=== PATIENT | female | born 1955 | race Caucasian/White ===

== ENCOUNTER 2023-10-20 11:21 | Emergency (ER) | payer MEDICARE, SELFPAY ==
[2023-10-20 11:33] VITALS: BP 210/130; PULSE 80; TEMP 37.2; O2SAT 98; BMI 27.3
--- NOTE | 2023-10-20 11:47 | ECG_ITS ---
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
--- NOTE | 2023-10-20 11:55 | ED_ITS ---
HPI - Dizziness General Chief Complaint: Dizziness Stated Complaint: HIGH BLOOD PRESSURE READING Time Seen by Provider: 10/20/23 11:36 Source: patient Mode of arrival: walk-in Limitations: no limitations History of Present Illness HPI Narrative: The patient was getting evaluated by her psychiatrist for refill of her Cymbalta that she ran out of, the patient was found to have elevated blood pressure ,told to come to the ER, the patient mentioned that she have some dizziness sometimes although she does not have any dizziness at the moment she also denies any chest pain nausea vomiting or any other complaints. She mentioned that her blood pressure medication was changed in September because of overtreatment and dizziness and it was cut in half. The patient denies any other complaints at the moment and she would like to go home Related Data Home Medications ?Medication ?Instructions ?Recorded ?Confirmed aspirin 81 mg tablet,delayed 81 mg PO DAILY 10/20/23 10/20/23 release atorvastatin 40 mg tablet 40 mg PO DAILY 10/20/23 10/20/23 duloxetine 30 mg capsule,delayed 30 mg PO DAILY 10/20/23 10/20/23 release duloxetine 60 mg capsule,delayed 60 mg PO .hs 10/20/23 10/20/23 release trazodone 150 mg tablet 150 mg PO .hs 10/20/23 10/20/23 Allergies Allergy/AdvReac Type Severity Reaction Status Date / Time Penicillins Allergy Intermediate Rash Verified 10/20/23 11:29 codeine Allergy Mild Abdominal Verified 10/20/23 11:29 Pain sulfamethoxazole Allergy Mild Verified 10/20/23 11:29 [From Bactrim] trimethoprim [From Bactrim] Allergy Mild Verified 10/20/23 11:29 Review of Systems ROS Status of ROS 10 or more systems reviewed and unremark able except as noted in history and below Exam Narrative Exam Narrative: Nurses notes and vital signs reviewed and patient is not hypoxic. General: Well-appearing and in no apparent distress. Skin: Warm, dry, no pallor noted. No rash. Head: Normocephalic, atraumatic. Neck: Supple, non-tender. Eye: Pupils are equal, round and EOMI. No scleral icterus. Ears, Nose, Mouth, and Throat: TM are clear, no nasal mucosal hypertrophy. Oral mucosa is moist, no posterior oropharynx erythema, uvula is mid-line Cardiovascular: Regular Rate and Rhythm without murmur, gallop or rub. Respiratory: No accessory muscle use or respiratory distress. Lungs are clear to auscultation, no wheezing, rales or rhonchi Chest Wall: no tenderness Back: No midline thoracic or lumbar vertebral tenderness. No CVA tenderness Musculoskeletal: normal ROM, no calf or popliteal tenderness, no lower extremity edema/swelling GI: Abdomen is soft, non-distended. Normal bowel sounds. No masses appreciated. No tenderness to palpation. No rebound, guarding, or rigidity noted. Neurological: A&O x4. No cranial nerve dysfunction observed. No truncal ataxia. Moves all extremities. Sensation intact. Psychiatric: Cooperative and interactive. Normal mood and affect. Constitutional Vital Signs, click to edit/add: Last Vital Signs Temp 98.9 F 10/20/23 11:33 Pulse 73 10/20/23 11:57 Resp 18 10/20/23 11:57 BP 161/96 H 10/20/23 11:57 Pulse Ox 92 L 10/20/23 11:57 O2 Del Method Room Air 10/20/23 11:33 Course Vital Signs Vital signs: Vital Signs Temperature 98.9 F 10/20/23 11:33 Pulse Rate 80 10/20/23 11:33 Respiratory Rate 15 10/20/23 11:33 Blood Pressure 210/130 H 10/20/23 11:33 Pulse Oximetry 98 10/20/23 11:33 Oxygen Delivery Method Room Air 10/20/23 11:33 Temperature 98.9 F 10/20/23 11:33 Pulse Rate 73 10/20/23 11:57 Respiratory Rate 18 10/20/23 11:57 Blood Pressure 161/96 H 10/20/23 11:57 Pulse Oximetry 92 L 10/20/23 11:57 Oxygen Delivery Method Room Air 10/20/23 11:33 MDM - Dizziness MDM Narrative Medical decision making narrative: The patient EKG in the ER showing sinus rhythm with a heart rate of [address] elevation or depression Patient denies any complaint at the moment Her blood pressure was 160/95 and it was repeated to be 154/95 She did run out of her Cymbalta and it was refilled and her medication was lowered at the beginning of last month due to the fact that is overtreating her blood pressure. Right now the patient does not have any indication for any acute change in her blood pressure medication and she does not have any symptoms She was discharged to follow-up with her primary care as outpatient The patient is to follow up with primary care physician in next 2-3 days or to return to the emergency department should any of the signs or symptoms worsen or new symptoms develop. The patient agrees with the following Diagnosis and Treatment plan and the patient will be discharged home. Lab Data Labs: Lab Results 10/20/23 Range/Units 11:53 WBC 9.1 (4.0-11.0) 10^3/uL RBC 4.94 (4.20-5.40) 10^6/uL Hgb 15.1 (12.0-16.0) g/dL Hct 45.3 (36.0-48.0) % MCV 91.7 (81.0-99.0) fL MCH 30.6 (26.7-34.0) pg MCHC 33.3 (29.9-35.2) g/dL RDW 13.6 (11.0-15.0) % Plt Count 261 (150-450) 10^3/uL MPV 9.5 (9.5-13.5) fL Neut % (Auto) 63.1 (43.0-75.0) % Lymph % (Auto) 28.6 (20.5-60.0) % [place] % (Auto) 5.9 (1.7-12.0) % Eos % (Auto) 1.3 (0.9-7.0) % Baso % (Auto) 0.9 (0.2-2.0) % Neut # (Auto) 5.7 (1.4-6.5) 10^3/uL Lymph # (Auto) 2.6 (1.2-3.8) 10^3/uL [place] # (Auto) 0.5 (0.3-0.8) 10^3/uL Eos # (Auto) 0.1 (0.0-0.7) 10^3/uL Baso # (Auto) 0.1 (0.0-0.1) 10^3/uL Abs Immat Gran (auto) 0.02 (0.00-0.03) 10^3/uL Imm/Tot Granulo (auto) 0.2 (0.0-0.5) % Sodium 138 (136-145) mmol/L Potassium 3.7 (3.5-5.1) mmol/L Chloride 103 (98-107) mmol/L Carbon Dioxide 27.2 (21.0-32.0) mmol/L Anion Gap 11.5 BUN 22.0 H (7.0-18.0) mg/dL Creatinine 0.86 (0.55-1.02) mg/dL Est GFR ( Amer) >60 (>=60) Est GFR (Non-Af Amer) >60 (>=60) BUN/Creatinine Ratio 25.6 Glucose 103 (74-106) mg/dL Calcium 9.9 (8.5-10.1) mg/dL Total Bilirubin 0.4 (0.2-1.0) mg/dL AST 23 (15-37) U/L ALT 25 (14-59) U/L Alkaline Phosphatase 76 (46-116) U/L Troponin I High Sens 9.0 (4.0-51.3) pg/mL Total Protein 6.9 (6.4-8.2) g/dL Albumin 3.4 (3.4-5.0) g/dL Globulin 3.5 g/dL Albumin/Globulin Ratio 1.0 Discharge Plan Discharge Stand Alone Forms: Portal Instructions Chief Complaint: Dizziness Clinical Impression: Hypertension Qualifiers: Hypertension type: primary hypertension Qualified Code(s): I10 - Essential (primary) hypertension Patient Disposition: Home, Self-Care Time of Disposition Decision: 12:35 Condition: Good Prescriptions / Home Meds: No Action trazodone 150 mg tablet 150 mg PO .hs duloxetine 30 mg capsule,delayed release(DR/EC) 30 mg PO DAILY duloxetine 60 mg capsule,delayed release(DR/EC) 60 mg PO .hs aspirin 81 mg tablet,delayed release (DR/EC) 81 mg PO DAILY atorvastatin 40 mg tablet 40 mg PO DAILY Print Language: [place] Instructions: Chronic Hypertension (DC) Referrals: KRISTY VALERO [Primary Care Provider] - 1 week
[2023-10-20 11:57] VITALS: BP 161/96; PULSE 73; O2SAT 92
[2023-10-20 12:03] LABS: Basophils Absolute Auto 0.1 10^3/uL (0.0-0.1); Basophils Percent Auto 0.9 % (0.2-2.0); Eosinophils Absolute Auto 0.1 10^3/uL (0.0-0.7); Eosinophils Percent Auto 1.3 % (0.9-7.0); Hematocrit 45.3 % (36.0-48.0); Hemoglobin 15.1 g/dL (12.0-16.0); Immature Granulocytes Abs Auto 0.02 10^3/uL (0.00-0.03); Immature Granulocytes Pct Auto 0.2 % (0.0-0.5); Lymphocytes Absolute Auto 2.6 10^3/uL (1.2-3.8); Lymphocytes Percent Auto 28.6 % (20.5-60.0); Mean Corpuscular HGB Conc 33.3 g/dL (29.9-35.2); Mean Corpuscular Hemoglobin 30.6 pg (26.7-34.0); Mean Corpuscular Volume 91.7 fL (81.0-99.0); Mean Platelet Volume 9.5 fL (9.5-13.5); Monocytes Absolute Auto 0.5 10^3/uL (0.3-0.8); Monocytes Percent Auto 5.9 % (1.7-12.0); Neutrophils Absolute Auto 5.7 10^3/uL (1.4-6.5); Neutrophils Percent Auto 63.1 % (43.0-75.0); Platelet Count 261 10^3/uL (150-450); Red Blood Count 4.94 10^6/uL (4.20-5.40); Red Cell Distribution Width 13.6 % (11.0-15.0); White Blood Count 9.1 10^3/uL (4.0-11.0)
[2023-10-20 12:21] LABS: Alanine Aminotransferase 25 U/L (14-59); Albumin Level 3.4 g/dL (3.4-5.0); Alkaline Phosphatase 76 U/L (46-116); Anion Gap 11.5; Aspartate Amino Transferase 23 U/L (15-37); BUN Creatinine Ratio 25.6; Bilirubin Total 0.4 mg/dL (0.2-1.0); Calcium 9.9 mg/dL (8.5-10.1); Carbon Dioxide 27.2 mmol/L (21.0-32.0); Chloride 103 mmol/L (98-107); Estimated GFR (African America >60 (>=60); Estimated GFR (Non-African Ame >60 (>=60); Globulin 3.5 g/dL; Glucose 103 mg/dL (74-106); Potassium 3.7 mmol/L (3.5-5.1); Sodium 138 mmol/L (136-145); Total Protein 6.9 g/dL (6.4-8.2)
[2023-10-20 12:37] VITALS: BP 154/95; PULSE 71; O2SAT 96
== END 2023-10-20 12:39 | disposition home or self-care (01) ==
PROVIDERS: Emergency Provider Emergency Medicine; PCP Family Medicine
DX: I10 Essential (primary) hypertension (principal); Z79.82 Long term (current) use of aspirin
CPT/HCPCS: 36415; 80053; 84484; 85025; 93005; 99284